=== PATIENT | male | born 1995 | race African-American/Black ===

== ENCOUNTER 2023-09-15 11:12 | Emergency (ER) | payer SELFPAY ==
[~2023-09-15] VITALS: Ht 182.9 cm; Wt 69.1 kg
[2023-09-15 11:19] VITALS: TEMP 99.1
[2023-09-15] MEDS ORDERED: AMOX500C2 PO (12:41)
[2023-09-15 13:00] VITALS: BP 118/72; PULSE 85; RESP 18
== END 2023-09-15 13:44 | disposition home or self-care (01) ==
LOC: EMS 11:12
DX: H66.41 Suppurative otitis media, unspecified, right ear (principal)
CPT/HCPCS: 87430; 99283